=== PATIENT | male | born 1980 ===

== ENCOUNTER 2018-05-27 09:24 | Emergency (ER) | payer MEDICAID ==
[2018-05-27 09:28] VITALS: BMI 29.9
[2018-05-27] MEDS ORDERED: Sodium Chloride 0.9% 1,000 ML IV ONE (09:36)
[2018-05-27] MEDS ORDERED: Sodium Chloride 0.9% 1,000 ML ONE (09:55)
--- NOTE | 2018-05-27 09:56 | C.PDOC ---
History Of Present Illness 27 year old male with a history of cocaine abuse presents to the ED via EMS for evaluation of substance abuse. The patient was transported from a homeless snf where he was found unresponsive and given narcan prior to arrival per EMS. In the ED the patient is alert and oriented x3. He states he was given an unknown pill by an an unknown individual. Denies fever, chills, trauma, and any other associated symptoms. Time Seen by Provider: 05/27/18 09:26 Chief Complaint (Nursing): Substance Abuse History Per: Patient, EMS History/Exam Limitations: no limitations Current Symptoms Are (Timing): Still Present Recent travel outside of the [place]: No Past Medical History Reviewed: Historical Data, Nursing Documentation, Vital Signs Vital Signs: Last Vital Signs Temp 98.4 F 05/27/18 09:28 Pulse 96 H 05/27/18 09:28 Resp 16 05/27/18 09:28 BP 112/72 05/27/18 09:28 Pulse Ox 100 05/27/18 09:28 Family History: States: Unknown Family Hx - Social History Hx Alcohol Use: Yes Hx Substance Use: Yes Review Of Systems Except As Marked, All Systems Reviewed And Found Negative. Constitutional: Positive for: Other (substance abuse. ). Negative for: Fever, Chills Physical Exam - Physical Exam Appears: Non-toxic, No Acute Distress Skin: Normal Color, Warm, Dry Head: Atraumatic, Normacephalic Eye(s): bilateral: Normal Inspection, Other (constricted pupils.) Oral Mucosa: Moist Neck: Normal ROM Chest: Symmetrical Cardiovascular: Rhythm Regular, No Murmur Respiratory: Normal Breath Sounds, No Rales, No Rhonchi, No Wheezing Gastrointestinal/Abdominal: Normal Exam, Soft, No Tenderness Extremity: Bilateral: Atraumatic, Normal Color And Temperature, Normal ROM Neurological/Psych: Oriented x3, Normal Speech, Normal Cognition ED Course And Treatment - Laboratory Results Result Diagrams: 05/27/18 09:53 05/27/18 09:53 ECG Rhythm: Sinus Rhythm Interpretation Of ECG: No ST changes Rate From EC O2 Sat by Pulse Oximetry: 100 (RA) Pulse Ox Interpretation: Normal Medical Decision Making Medical Decision Making: suspect narcotic od. now awake alert. will observe Plan: -EKG -Blood sent. -CXR -Glucose POC -Urinalysis 1130: pt reassesed awake alert oriented x 3 in nad. ambulatory steady gait in er, pending ua and reassessment. 1215: pt clincially sober, observed 3 hours. no need for repeated narcan. ambulatory no si hi. asking for dc. cxr neg as read by me. Disposition - Disposition Referrals: [facility] [Outside] [facility] [Outside] [facility] [Outside] [facility] [Outside] Disposition: HOME/ ROUTINE Disposition Time: 12:00 Condition: STABLE Additional Instructions: return to er with worsening symptoms or concerns. Instructions: Narcotic Overdose , Polysubstance Abuse Forms: [employer] ([place]an) - Clinical Impression Clinical Impression: Overdose - Scribe Statement The provider has reviewed the documentation as recorded by the Scribe (Shona Molina) Provider Attestation: All medical record entries made by the Scribe were at my direction and personally dictated by me. I have reviewed the chart and agree that the record accurately reflects my personal performance of the history, physical exam, medical decision making, and the department course for this patient. I have also personally directed, reviewed, and agree with the discharge instructions and disposition.
[2018-05-27 09:58] LABS: BASO % 0.2 % (0.0-2.0); LYMPH # 1.2 K/uL (1.0-4.3); LYMPH % 15.5 % (20.0-40.0); MEAN CELL VOLUME 91.6 fL (80.0-94.0); MEAN CORPUSCULAR HEMOGLOBIN 30.6 pg (27.0-31.0); MEAN CORPUSCULAR HGB CONC 33.4 g/dL (33.0-37.0); MEAN PLATELET VOLUME 6.3 fL (7.2-11.7); MONO # 0.7 K/uL (0.0-0.8); NEUT % 75.3 % (50.0-75.0); NRBC % 0.1 % (0.0-2.0); RBC 4.59 Mil/uL (4.40-5.90); RED CELL DISTRIBUTION WIDTH 14.3 % (11.5-14.5)
[2018-05-27 10:08] LABS: ACETAMINOPHEN < 10.0 ug/mL (10.0-30.0); SALICYLATE < 1.0 mg/dL 1
[2018-05-27 10:14] LABS: ALB/GLOB RATIO 1.4 (1.0-2.1); ALBUMIN 4.6 g/dL (3.5-5.0); ALT/SGPT 44 U/L (21-72); AST/SGOT 54 U/L (17-59); BLOOD UREA NITROGEN 27 mg/dL (9-20); CALCIUM 8.6 mg/dl (8.6-10.4); GFR NON-AFRICAN AMERICAN > 60
[2018-05-27 11:40] VITALS: PULSE 81; RESP 13
[2018-05-27 11:44] LABS: SQUAMOUS EPITHIAL 1 /hpf (0-5); URINE BILIRUBIN NEGATIVE (NEGATIVE); URINE BLOOD NEGATIVE (NEGATIVE); URINE CLARITY Clear (Clear); URINE COLOR Yellow (YELLOW); URINE GLUCOSE (UA) NORMAL (Normal); URINE LEUKOCYTE ESTERASE NEG Leu/uL (Negative); URINE PROTEIN 1+ mg/dL (NEGATIVE); URINE UROBILINOGEN NORMAL mg/dL (0.2-1.0)
[2018-05-27 12:00] LABS: BENZODIAZEPINES, UR NEGATIVE (NEGATIVE); PHENCYCLIDINE, UR NEGATIVE (NEGATIVE)
[2018-05-27 12:04] LABS: OPIATES, UR POSITIVE (NEGATIVE)
[2018-05-27 12:08] LABS: BARBITURATES, UR NEGATIVE (NEGATIVE)
[2018-05-27 12:15] VITALS: BP 109/72; TEMP 99
[2018-05-27 12:19] VITALS: O2SAT 100
--- NOTE | 2018-05-29 07:59 | RAD ---
Chest x-ray single frontal view HISTORY: Detox. COMPARISON: None available. FINDINGS: Mild venous congestion. Bilateral hilar prominence. Heart size within normal limits. IMPRESSION: Mild venous congestion. Bilateral hilar prominence.
--- NOTE | 2018-05-29 22:06 | CARD ---
APPROVED REPORT Date of service: 05/27/2018 EKG Measurement Heart [id number] <Conclusion> Normal sinus rhythm Normal ECG
== END 2018-05-27 12:25 | disposition home or self-care (01) ==
LOC: C.ER 09:24
DX: T50.901A Poisoning by unspecified drugs, medicaments and biological substances, accidental (unintentional), initial encounter (principal)
CPT/HCPCS: 71045; 80053; 80320; 80324; 80329; 80345; 80346; 80349; 80353; 80358; 80361; 81001; 82948; 83992; 85025; 93005; 96360; 99285; J7030